=== PATIENT | female | born 1965 | race African-American/Black ===

== ENCOUNTER 2017-09-27 15:08 | Emergency (ER) | payer MEDICAID ==
[~2017-09-27] VITALS: Ht 157.5 cm; Wt 62.0 kg
[2017-09-27] MEDS ORDERED: KETOROLAC 60MG/2ML VIAL IM STA (16:21)
[2017-09-27] MEDS ORDERED: CYCLOBENZAPRINE 10MG TABLET PO SCH (16:30)
[2017-09-27 16:34] VITALS: BP 155/80
== END 2017-09-27 16:47 | disposition home or self-care (01) ==
LOC: ER 15:41
DX: M43.6 Torticollis (principal); M54.2 Cervicalgia; Z88.0 Allergy status to penicillin
CPT/HCPCS: 96372; 99283; J1885